=== PATIENT | male | born 1965 | race African-American/Black ===

== ENCOUNTER 2020-10-04 00:11 | Emergency (ER) | payer OTHER ==
[~2020-10-04] VITALS: Ht 167.6 cm; Wt 61.2 kg
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
[2020-10-04] MEDS ORDERED: NOHOMEMEDICATIONS (00:23)
[2020-10-04] MEDS ORDERED: PERCOCET 5-3251 EACH PO (01:26)
[2020-10-04 01:44] VITALS: BP 134/84
== END 2020-10-04 01:44 | disposition home or self-care (01) ==
LOC: ER 00:11
DX: S22.32XA Fracture of one rib, left side, initial encounter for closed fracture (principal); S01.511A Laceration without foreign body of lip, initial encounter; Y08.89XA Assault by other specified means, initial encounter; Y93.89 Activity, other specified; Y92.89 Other specified places as the place of occurrence of the external cause; Y99.8 Other external cause status